=== PATIENT | female | born 1995 | race Caucasian/White ===

== ENCOUNTER 2020-06-07 02:38 | Inpatient (IN) | payer OTHER ==
--- NOTE | 2020-05-31 10:55 | PCM.LDHP ---
L&D History of Present Illness - General Date of Service: 06/07/20 Admit Problem/Dx: Admission Diagnosis/Problem Admission Diagnosis/Problem 05/31/20 10:45 Aisha is a 24-year-old 3 para 0-0-2-0 female who was scheduled to be admitted on 06/07/2020 for an elective primary section for juliano breech presentation at 39-3/7 weeks gestational age with an MADISON of 06/11/2020. Source of Information: Patient History Limitations: Reports: No Limitations - History of Present Illness Introduction:: Aisha is a 24-year-old 3 para 0-0-2-0 female who was scheduled to be admitted on 06/07/2020 for an elective primary section for juliano breech presentation at 39-3/7 weeks gestational age with an MADISON of 06/11/2020. Procedure, risks, benefits, alternatives of care including external cephalic version and vaginal breech delivery were discussed in detail with patient. She appears understand and wishes to proceed with a primary section. Consent is signed. Preoperative orders are placed. 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 Patient had menarche at age 14. Cycles q. 28 days. Positive hCG was on 10/05/2019. Her LMP was 09/05/2019. Her ultrasound is dated by the LMP and supported by at least 4 ultrasounds done since that time. GC is positive at the beginning of pregnancytreated.. No abnormal Pap smears noted. She is not using any control at the time of conception. course: First visit was at 10-3/7 weeks gestational age. She did have an ultrasound that was performed in [facility] at 6-5/7 weeks which correlated well with her LMP dating. She was seen on a regular basis. Her weight gain was from 210.2 pounds to 242 pounds for 32 pound weight gain. Her vital signs are stable throughout the course. Her fundal height growth was somewhat ahead of schedule on the last few visits. This felt possibly due to breech presentation. Her immunizations include Tdap given on 03/31/2020. She is rubella immune. Her group B strep screen is negative. Breech presentation was noted during the last trimester. She has suffers from anxiety. She plans on breast-feeding. Her prequel noninvasive screen was negative. She had a low-lying placenta early on which resolved with time. She plans on epidural in labor. Allergies: None Medications: 1. vitamins daily 2. Ferrous sulfate 325 mg daily. Past medical history: 1. Anxiety. 2. Miscarriage x2. Past surgical history: Unremarkable Family history: Mother is alive and has arthritis. Dad is alive and has adult- onset diabetes mellitus. 1 sister with asthma history. 1 brother alive and well. 1 paternal grandparent with cleft lip. Maternal grandmother secondary to heart issues in route resulting in valve replacements. Maternal grandfather with history of MIs in early age. Paternal grandmother secondary to adult-onset diabetes, Alzheimer's, at age 71. Paternal grandfather is alive but has the cleft palate. No anesthesia, bleeding, blood clotting problems noted in the family. Social history: Patient is . is Carlos. 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 She denies any significant muscle alcohol, drugs or tobacco. Review of systems: In general patient has no complaints. Baby has been active. Skin: Negative Lungs: No infectious symptoms or shortness of breath Cardiovascular: No chest pain or exercise intolerance Breasts: No lumps, changes in size, pain, dimpling, discharge or axillary or supraclavicular concerns. GI: Negative : Changes associated with . Musculoskeletal: Negative Neurological: Negative Physical exam: In general the patient is well-developed, well-nourished, pleasant female of stated age in no acute distress. Skin is warm dry without lesions. HEENT, neck and back within normal limits. Lungs are clear with good breath sounds in all lung orantes. Cardiovascular exam shows regular and rhythm without murmurs. Breast exam done at first visit was unremarkable. Is not repeated at this time. Abdomen is gravid with fundal height on last evaluation 05/31/2020 at 42 cm. Baby in a breech presentation by [place] maneu[place].. Genital per digital evaluation on 05/25/2020 showed cervix to be fingertip, 50% effaced, firm, very high. Presenting part not palpated Extremities and neurological exam are grossly within normal limits. H&P Review of Systems - Review of Systems: Review Of Systems: See Below L&D Exam - Exam Exam: See Below - Problem List (1) Juliano breech presentation SNOMED Code(s): 09540249 ICD Code: O32.1XX0 - MATERNAL CARE FOR BREECH PRESENTATION, UNSP Status: Acute (2) 39 weeks gestation of SNOMED Code(s): 68739483 ICD Code: Z3A.39 - 39 WEEKS GESTATION OF Status: Acute Problem List Initiated/Reviewed/Updated: Yes Assessment/Plan Comment:: 1. Aisha is a 24-year-old 3 para 0-0-2-0 female who was scheduled to be admitted on 06/07/2020 for an elective primary section for juliano breech presentation at 39-3/7 weeks gestational age with an MADISON of 06/11/2020. 2. History of GC in early 3. Patient plans to breast-feed 4. Tdap given during . 5. Rubella immune. 6. RPR nonreactive Plan: 1. Primary low uterine segment transverse section through Pfannenstiel skin incision under spinal block. Procedure, risk, benefits, alternatives of care discussed with patient. She appears understand and wishes to proceed. She has signed a consent. 2. DVT prophylaxis with SCDs 3. Infection prophylaxis with 2 g IV preop 4. Preoperative evaluation consist of RPR, type and screen, CBC, Covid19 testing 5. Water Fabricator Operator in attendance at the time of surgery 6. Support breast-feeding decision.
[~2020-06-07 02:38] MED LIST: Sodium Chloride 0.9% 10 ML Syringe FLUSH PRN; ceFAZolin 2 GM in Premix Bag 1 BAG IV ONE
[2020-06-07] MEDS ORDERED: Citric Acid/Sodium Citrate Solution 30 ML Cup PO ONE (06:00)
[2020-06-07] MEDS ORDERED: Metoclopramide 10 MG/2 ML SDV IVPUSH ONE (06:00)
[2020-06-07] MEDS ORDERED: Oxytocin/Lactated Ringers 20 UNIT/1,000 ML BAG IV SCH (06:00)
[2020-06-07] MEDS: Lactated Ringers 1,000 ML IV SCH ×2 (06:15→06:53)
[2020-06-07] MEDS ORDERED: Ondansetron 4 MG/2 ML SDV ONE (06:57)
[2020-06-07] MEDS ORDERED: Ketorolac 30 MG/ML SDV ONE (06:57)
[2020-06-07] MEDS ORDERED: Oxytocin 10 Units/1 ML SDV ONE (06:58)
[2020-06-07] MEDS ORDERED: Bupivacaine 0.5% 30 ML SDV ONE (07:04)
[2020-06-07] MEDS ORDERED: ceFAZolin 1 GM Vial ONE (07:04)
[2020-06-07] MEDS ORDERED: Lactated Ringers 0 ML ONE (07:05)
[2020-06-07] MEDS ORDERED: Morphine PF 10 MG/10 ML SDV ONE (07:08)
--- NOTE | 2020-06-07 07:27 | PCM.PREANE ---
Preanesthetic Assessment - Anesthesia/Transfusion/Family Hx Anesthesia History: Prior Anesthesia Without Reaction Family History of Anesthesia Reaction: No Transfusion History: No Prior Transfusion(s) Intubation History: Unknown - Review of Systems General: No Symptoms Pulmonary: No Symptoms Cardiovascular: No Symptoms Gastrointestinal: No Symptoms Neurological: No Symptoms Other: Reports: None - Physical Assessment NPO Status Date: 06/06/20 NPO Status Time: 22:30 Vital Signs: Last Vital Signs Temp 36.4 C 06/07/20 05:28 Pulse 83 06/07/20 05:28 Resp 18 06/07/20 05:28 BP 108/45 L 06/07/20 05:28 Pulse Ox 97 06/07/20 05:28 Height: 1.57 m Weight: 109.769 kg ASA Class: 2 Mental Status: Alert & Oriented x3 Airway Class: Mallampati = 3 Dentition: Reports: Normal Dentition Thyro-Mental Finger Breadths: 2 Mouth Opening Finger Breadths: 3 ROM/Head Extension: Full Lungs: Clear to Auscultation, Normal Respiratory Effort Cardiovascular: Regular Rate, Regular Rhythm - Lab Values: Laboratory Last Values WBC 8.74 K/mm3 (3.98-10.04) 06/07/20 05:15 RBC 4.13 M/mm3 (3.98-5.22) 06/07/20 05:15 Hgb 12.4 gm/dl (11.2-15.7) 06/07/20 05:15 Hct 36.9 % (34.1-44.9) 06/07/20 05:15 MCV 89.3 fl (79.4-94.8) 06/07/20 05:15 MCH 30.0 pg (25.6-32.2) 06/07/20 05:15 MCHC 33.6 g/dl (32.2-35.5) 06/07/20 05:15 RDW Std Deviation 45.4 fL (36.4-46.3) 06/07/20 05:15 Plt Count 149 K/mm3 (182-369) L 06/07/20 05:15 MPV 10.9 fl (9.4-12.3) 06/07/20 05:15 Neut % (Auto) 70.0 % (34.0-71.1) 06/07/20 05:15 Lymph % (Auto) 21.5 % (19.3-51.7) 06/07/20 05:15 Laurens % (Auto) 7.2 % (4.7-12.5) 06/07/20 05:15 Eos % (Auto) 1.0 (0.7-5.8) 06/07/20 05:15 Baso % (Auto) 0.1 % (0.1-1.2) 06/07/20 05:15 Neut # (Auto) 6.11 K/mm3 (1.56-6.13) 06/07/20 05:15 Lymph # (Auto) 1.88 K/mm3 (1.18-3.74) 06/07/20 05:15 Laurens # (Auto) 0.63 K/mm3 (0.24-0.36) H 06/07/20 05:15 Eos # (Auto) 0.09 K/mm3 (0.04-0.36) 06/07/20 05:15 Baso # (Auto) 0.01 K/mm3 (0.01-0.08) 06/07/20 05:15 Blood Type O POSITIVE 06/07/20 05:15 Gel Antibody Screen Negative 06/07/20 05:15 - Allergies Allergies/Adverse Reactions: Allergies Allergy/AdvReac Type Severity Reaction Status Date / Time No Known Allergies Allergy Verified 06/06/20 13:50 - Acknowledgements Anesthesia Type Planned: Spinal Pt an Appropriate Candidate for the Planned Anesthesia: Yes Alternatives and Risks of Anesthesia Discussed w Pt/Guardian: Yes Pt/Guardian Understands and Agrees with Anesthesia Plan: Yes PreAnesthesia Questionnaire HEENT History: Reports: None Cardiovascular History: Reports: None Respiratory History: Reports: None Gastrointestinal History: Reports: None Genitourinary History: Reports: None CHEF UNDER History: Reports: Polycystic Ovaries, , Other (See Below) Other OB/BYN History: current ovarian cyst in Musculoskeletal History: Reports: None Neurological History: Reports: None Psychiatric History: Reports: Anxiety, Depression Endocrine/Metabolic History: Reports: None Hematologic History: Reports: None - Past Surgical History Female Surgical History: Reports: D&C - SUBSTANCE USE Tobacco Use Status *Q: Former Tobacco User Tobacco Use Within Last Twelve Months: Cigarettes Recreational Drug Use History: No - HOME MEDS Home Medications: Home Meds Ferrous Sulfate [Iron] 325 mg PO DAILY 06/06/20 [History] Vits #93/Iron Fum/FA [ Formula Tablet] 1 ea PO DAILY 06/06/20 [History] - CURRENT (IN HOUSE) MEDS Current Meds: Current Medications Oxytocin/Lactated Ringer's (Pitocin In Lr 20 Units/1,000 Ml) 20 unit in 1,000 mls @ 500 mls/hr IV TITRATE KRISTY; Protocol Lactated Ringer's (Ringers, Lactated) 1,000 mls @ 125 mls/hr IV ASDIRECTED KRISTY Last Admin: 06/07/20 06:53 Dose: 125 mls/hr Documented by: Sodium Chloride (Sodium Chloride 0.9% 10 Ml Syringe) 10 ml FLUSH ASDIRECTED PRN PRN Reason: Keep Vein Open Discontinued Medications Bupivacaine HCl (Bupivacaine 0.5% 30 Ml Sdv) Confirm Administered Dose 30 ml .ROUTE .STK-MED ONE Stop: 06/07/20 07:05 Cefazolin Sodium (Cefazolin 1 Gm Vial) Confirm Administered Dose 2 gm .ROUTE .STK-MED ONE Stop: 06/07/20 07:05 Citric Acid/Sodium Citrate (Citric Acid/Sodium Citrate Solution 30 Ml Cup) 30 ml PO ONETIME ONE Stop: 06/07/20 06:01 Last Admin: 06/07/20 06:56 Dose: 30 ml Documented by: Cefazolin Sodium/Dextrose 2 gm (/ Premix) 50 mls @ 100 mls/hr IV ONETIME ONE Stop: 06/07/20 03:07 Lactated Ringer's (Ringers, Lactated) Confirm Administered Dose 1,000 mls @ as directed .ROUTE .STK-MED ONE Stop: 06/07/20 07:06 Ketorolac Tromethamine (Ketorolac 30 Mg/Ml Sdv) Confirm Administered Dose 30 mg .ROUTE .STK-MED ONE Stop: 06/07/20 06:58 Metoclopramide HCl (Metoclopramide 10 Mg/2 Ml Sdv) 10 mg IVPUSH ONETIME ONE Stop: 06/07/20 06:01 Last Admin: 06/07/20 06:57 Dose: 10 mg Documented by: Morphine Sulfate (Morphine Pf 10 Mg/10 Ml Sdv) Confirm Administered Dose 10 mg .ROUTE .STK-MED ONE Stop: 06/07/20 07:09 Ondansetron HCl (Ondansetron 4 Mg/2 Ml Sdv) Confirm Administered Dose 4 mg .ROUTE .STK-MED ONE Stop: 06/07/20 06:58 Oxytocin (Oxytocin 10 Units/1 Ml Sdv) Confirm Administered Dose 20 unit .ROUTE .STK-MED ONE Stop: 06/07/20 06:59
--- NOTE | 2020-06-07 08:12 | PCM.SN.2 ---
- Free Text/Narrative Note: History and physical update note: Aisha is a 24-year-old 3 para 0-0-2-0 female who was scheduled to be admitted on 06/07/2020 for an elective primary section for juliano breech presentation at 39-3/7 weeks gestational age with an MADISON of 06/11/2020. Upon evaluation preoperatively in labor and delivery a bedside ultrasound was performed and this showed the baby to be in a vertex presentation. A vaginal exam was performed shows cervix to be 1 cm dilated, 50% effaced, soft, -3 station, mid position. Cephalic presentation was confirmed. heart tones are reassuring. Discussion was held with patient and her Carlos regarding options including: Discharge from the hospital at this time and having the patient return when she is in spontaneous active labor, induction of labor at this point with cervix being what it is would recommend Cytotec times at least 3 doses followed by Pitocin. The process, induction, risk, benefits and alternatives are discussed in detail with the patient and her . They appear to understand and would like to proceed with induction at this time. Assessment: 1. 39-week 2. Cephalic presentation, previously breech on previous clinical evaluations. 3. History and physical otherwise as per previously dictated H&P. Plan: 1. We will proceed with induction of labor with Cytotec cervical ripening initially followed by Pitocin, possible balloon placement, possible AROM. 2. Patient desires epidural in labor and delivery for pain control. 3. Otherwise plan is same as previously dictated format with the exception of preparation and related orders.
[2020-06-07] MEDS ORDERED: Nalbuphine 10 MG/1 ML Vial IVPUSH PRN ×2 (08:24→08:35)
[2020-06-07] MEDS ORDERED: Oxytocin/Lactated Ringers 10 UNIT/1,000 ML BAG IV SCH ×2 (08:35→19:00)
[2020-06-07] MEDS ORDERED: Sodium Chloride 0.9% 10 ML Syringe FLUSH PRN (08:35)
[2020-06-07] MEDS ORDERED: Lidocaine 1% 50 ML MDV INJECT ONE (08:35)
[2020-06-07] MEDS ORDERED: Misoprostol 25 MCG (1/4 of 100 MCG) Tab VAG ONE (08:35)
[2020-06-07] MEDS: Misoprostol 25 MCG (1/4 of 100 MCG) Tab VAG SCH ×2 (12:41→15:44)
[2020-06-07] MEDS ORDERED: diphenhydrAMINE 50 MG/ML SDV IVPUSH PRN (16:10)
[2020-06-08] MEDS: fentaNYL 100 MCG/2 ML SDV EPIDUR PRN ×2 (00:30→15:43)
[2020-06-08] MEDS: Bupivacaine/fentaNYL/NS 100 ML Bag EPIDUR PRN ×3 (00:31→17:47)
[2020-06-08] MEDS: Lactated Ringers 1,000 ML IV SCH ×3 (01:29→15:38)
[2020-06-08] MEDS: ePHEDrine 50 MG/ML SDV IVPUSH PRN ×3 (02:41→04:04)
[2020-06-08] MEDS: Oxytocin/Lactated Ringers 20 UNIT/1,000 ML BAG IV SCH ×2 (05:30→17:47)
[2020-06-08] MEDS ORDERED: Ondansetron 4 MG/2 ML SDV IVPUSH PRN (19:47)
--- NOTE | 2020-06-08 21:13 | PCM.SN.2 ---
- Free Text/Narrative Note: Delivery note: Stage I: Aisha is a 24-year-old 1 now para 1-0-0-1 white female who was admitted on the a.m. of 06/07/2020 for elective primary section. She is noted to have had the baby turned and become cephalic since her last clinic visit. Decision was made to proceed with induction of labor because of potential variable lie. Patient underwent Cytotec induction x3 doses and then was started on Pitocin. She is on Pitocin for approximately 24 hours with slow advancement in the dose again. She made steady progress throughout this time. She underwent epidural for labor analgesia. Stage II: Aisha it became complete at approximately 2000 hrs. She pushed for approximately 33 minutes and at 2032 hrs. delivered a viable, colon, male named Dusty Jones in a direct occiput anterior position. There is a loose nuchal cord that was reduced over the baby's head. Baby shoulder delivered with gentle downward and then upward pressure. The baby was placed on mom's abdomen, nose and mouth were bulb suction. Pitocin was increased to 500 cc/h to facilitate increase in uterine tone and decrease likelihood of bleeding. Umbilical cord was allowed to pulsate for 3 minutes and then was clamped x2 and cut by the baby's father. There was a second-degree laceration. There was a lateral rent to this laceration towards the right side of the patient. scores were 8 and 9, weight was 3780 g (8 pounds 5.3 ounces) and the length was 21.5 inches. Stage III: The episiotomy was repaired in routine fashion using both 3-0 Monocryl and then 3-0 Vicryl because of #3-0 Monocryl being in the delivery room. This was done using the labor epidural analgesia for perineal laceration repair anesthesia. The placenta delivered in a Schultze fashion, appeared intact and complete and was discarded per patient desire. Estimated blood loss was 500 cc. Epidural catheter was removed from the patient's back after the repair. Patient plans to breast-feed. Condition: Good.
[2020-06-08] MEDS ORDERED: Benzocaine/Menthol 20%-0.5% Spray 56 GM Canister TOP PRN (21:17)
[2020-06-08] MEDS ORDERED: Witch Hazel Medicated Pads 40/Jar TOP PRN (21:17)
[2020-06-08] MEDS ORDERED: Acetaminophen 325 MG Tab PO PRN (21:17)
[2020-06-08] MEDS: Ibuprofen 600 MG Tab PO PRN (22:07)
--- NOTE | 2020-06-09 07:27 | PCM.SN.2 ---
- Free Text/Narrative Note: note: day #1. Patient is doing well in the period. Minimal lochia, voiding well, am bulated without problems. Nursing without concerns. Patient is afebrile, vital signs are stable Abdomen is flat, soft, uterus is below the umbilicus and is firm and nontender. Legs are nontender. Assessment: recovery going well. Plan: Routine care. Patient be discharged home within the next 24-48 hours.
--- NOTE | 2020-06-09 07:29 | PCM48HPAN ---
Post Anesthesia Note - EVALUATION WITHIN 48HRS OF ANESTHETIC Vital Signs in Normal Range: Yes Patient Participated in Evaluation: Yes Respiratory Function Stable: Yes Airway Patent: Yes Cardiovascular Function Stable: Yes Hydration Status Stable: Yes Pain Control Satisfactory: Yes Nausea and Vomiting Control Satisfactory: Yes Mental Status Recovered: Yes Vital Signs: Last Vital Signs Temp 36.4 C 06/09/20 04:37 Pulse 63 06/09/20 04:37 Resp 14 06/09/20 04:37 BP 120/73 06/09/20 04:37 Pulse Ox 99 06/09/20 04:37
[2020-06-09] MEDS: Ibuprofen 600 MG Tab PO PRN ×2 (07:48→19:44)
[2020-06-09] MEDS: Prenatal Multivitamin with Calcium/Folic Acid/Iron Tab PO SCH (09:55)
[2020-06-09] MEDS: Docusate Sodium 100 MG Cap PO PRN ×2 (12:11→21:19)
[2020-06-10] MEDS: Ibuprofen 600 MG Tab PO PRN (09:04)
[2020-06-10] MEDS: Prenatal Multivitamin with Calcium/Folic Acid/Iron Tab PO SCH (09:04)
--- NOTE | 2020-06-10 10:50 | PCM.DCSUM1 ---
Discharge Summary - Hospital Course Free Text/Narrative:: Stage I: Aisha is a 24-year-old 1 now para 1-0-0-1 white female who was admitted on the a.m. of 06/07/2020 for elective primary section. She is noted to have had the baby turned and become cephalic since her last clinic visit. Decision was made to proceed with induction of labor because of potential variable lie. Patient underwent Cytotec induction x3 doses and then was started on Pitocin. She is on Pitocin for approximately 24 hours with slow advancement in the dose again. She made steady progress throughout this time. She underwent epidural for labor analgesia. Stage II: Aisha it became complete at approximately 2000 hrs. She pushed for approximately 33 minutes and at 2032 hrs. delivered a viable, colon, male infant named Dusty Jones in a direct occiput anterior position. There is a loose nuchal cord that was reduced over the baby's head. Baby shoulder delivered with gentle downward and then upward pressure. The baby was placed on mom's abdomen, nose and mouth were bulb suction. Pitocin was increased to 500 cc/h to facilitate increase in uterine tone and decrease likelihood of bleeding. Umbilical cord was allowed to pulsate for 3 minutes and then was clamped x2 and cut by the baby's father. There was a second-degree laceration. There was a lateral rent to this laceration towards the right side of the patient. scores were 8 and 9, weight was 3780 g (8 pounds 5.3 ounces) and the length was 21.5 inches. Stage III: The episiotomy was repaired in routine fashion using both 3-0 Monocryl and then 3-0 Vicryl because of #3-0 Monocryl being in the delivery room. This was done using the labor epidural analgesia for perineal laceration repair anesthesia. The placenta delivered in a Schultze fashion, appeared intact and complete and was discarded per patient desire. Estimated blood loss was 500 cc. Epidural catheter was removed from the patient's back after the repair. Patient plans to breast-feed. The patient is breast-feeding which is going well. She has minimal lochia, voiding well and is ambulating without concerns. She is desiring discharge home. Condition: Good. - Discharge Data Discharge Date: 04/22/21 Discharge Disposition: Home, Self-Care 01 Condition: Good - Referral to Home Health Primary Care Physician: Mulugeta Quezada MD - Discharge Diagnosis/Problem(s) (1) Azam breech presentation SNOMED Code(s): 44072592 ICD Code: O32.1XX0 - MATERNAL CARE FOR BREECH PRESENTATION, UNSP Status: Acute Current Visit: No (2) 39 weeks gestation of SNOMED Code(s): 83265565 ICD Code: Z3A.39 - 39 WEEKS GESTATION OF Status: Acute Current Visit: No - Patient Instructions Diet: Regular Diet as Tolerated (Nursing diet with increased calories and calcium as recommended) Activity: As Tolerated (No intercourse or tampons until bleeding resolves) Driving: May Drive Today Showering/Bathing: May Shower (May take a bath) - Discharge Plan Home Medications: Home Meds Ferrous Sulfate [Iron] 325 mg PO DAILY 06/06/20 [History] Vits #93/Iron Fum/FA [ Formula Tablet] 1 ea PO DAILY 06/06/20 [History] Acetaminophen [Tylenol] 650 mg PO Q4H PRN tablet 06/10/20 [Rx] Docusate Sodium [Colace] 100 mg PO BID PRN cap 06/10/20 [Rx] Ibuprofen [Motrin] 600 mg PO Q4H PRN tablet 06/10/20 [Rx] Referrals: Mulugeta Quezada MD [Primary Care Provider] - (Return to [facility] weeks.) - Discharge Summary/Plan Comment DC Time >30 min.: No Discharge Summary/Plan Comment: Discharge instructions: 1. Discharge home 2. Diet, activity and follow-up discussed with patient. Recommend nursing diet with increased calories and calcium. 3. Precautions given concern increased pain, bleeding, temperature, signs/symptoms of DVT/PE. 4. Medications per home medication was printed, discussed with and given to the patient. 5. Return to clinic-Dr. Quezada[facility] in 2 weeks. Diagnosis: Term -delivered Condition: Good - Patient Data Vitals - Most Recent: Last Vital Signs Temp 36.3 C 06/10/20 08:55 Pulse 80 06/10/20 08:55 Resp 14 06/10/20 08:55 BP 126/77 06/10/20 08:55 Pulse Ox 97 06/10/20 08:55 Weight - Most Recent: 109.769 kg I&O - Last 24 hours: Intake & Output 06/09/20 06/10/20 06/10/20 22:59 06:59 14:59 Intake Total 0 Balance 0 Med Orders - Current: Current Medications Acetaminophen (Acetaminophen 325 Mg Tab) 650 mg PO Q4H PRN PRN Reason: mild pain or fever Last Admin: 06/09/20 12:09 Dose: 650 mg Documented by: Benzocaine/Menthol (Benzocaine/Menthol 20%-0.5% Coker 56 Gm Canister) 0 gm TOP ASDIRECTED PRN PRN Reason: Perineal Comfort Measure Last Admin: 06/08/20 22:06 Dose: 1 can Documented by: Docusate Sodium (Docusate Sodium 100 Mg Cap) 100 mg PO BID PRN PRN Reason: Constipation Last Admin: 06/09/20 21:19 Dose: 100 mg Documented by: Ibuprofen (Ibuprofen 600 Mg Tab) 600 mg PO Q4H PRN PRN Reason: Mild pain or fever Last Admin: 06/10/20 09:04 Dose: 600 mg Documented by: Prenat Multivit/Pet Ambassador/Iron/Folic Ac ( Multivitamin With Calcium/Folic Acid/Iron Tab) 1 each PO DAILY KRISTY Last Admin: 06/10/20 09:04 Dose: 1 each Documented by: Everton Anna (Everton Anna Medicated Pads 40/Jar) 1 pad TOP ASDIRECTED PRN PRN Reason: Perineal Comfort Measure Last Admin: 06/08/20 22:07 Dose: 1 tub Documented by: Discontinued Medications Bupivacaine HCl (Bupivacaine 0.5% 30 Ml Sdv) Confirm Administered Dose 0 ml .ROUTE .STK-MED ONE Stop: 06/07/20 07:05 Cefazolin Sodium (Cefazolin 1 Gm Vial) Confirm Administered Dose 2 gm .ROUTE .STK-MED ONE Stop: 06/07/20 07:05 Citric Acid/Sodium Citrate (Citric Acid/Sodium Citrate Solution 30 Ml Cup) 30 ml PO ONETIME ONE Stop: 06/07/20 06:01 Last Admin: 06/07/20 06:56 Dose: 30 ml Documented by: Diphenhydramine HCl (Diphenhydramine 50 Mg/Ml Sdv) 25 mg IVPUSH Q6H PRN PRN Reason: pruritis Ephedrine Sulfate (Ephedrine 50 Mg/Ml Sdv) 5 mg IVPUSH ASDIRECTED PRN PRN Reason: Hypotension Last Admin: 06/08/20 04:04 Dose: 5 mg Documented by: Fentanyl (Fentanyl 100 Mcg/2 Ml Sdv) 100 mcg EPIDUR Q3H PRN PRN Reason: Pain Last Admin: 06/08/20 15:43 Dose: 100 mcg Documented by: Fentanyl/Bupivacaine HCl (Bupivacaine/Fentanyl/Ns 100 Ml Bag) 100 ml EPIDUR ASDIRECTED PRN PRN Reason: Pain Last Admin: 06/08/20 17:47 Dose: 100 ml Documented by: Cefazolin Sodium/Dextrose 2 gm (/ Premix) 50 mls @ 100 mls/hr IV ONETIME ONE Stop: 06/07/20 03:07 Oxytocin/Lactated Ringer's (Pitocin In Lr 20 Units/1,000 Ml) 20 unit in 1,000 mls @ 500 mls/hr IV TITRATE KRISTY; Protocol Lactated Ringer's (Ringers, Lactated) 1,000 mls @ 125 mls/hr IV ASDIRECTED KRISTY Last Infusion: 06/07/20 16:54 Dose: 100 mls/hr Documented by: Lactated Ringer's (Ringers, Lactated) Confirm Administered Dose 0 mls @ as directed .ROUTE .K-MED ONE Stop: 06/07/20 07:06 Lactated Ringer's (Ringers, Lactated) 1,000 mls @ 100 mls/hr IV ASDIRECTED KRISTY Last Admin: 06/08/20 15:38 Dose: 100 mls/hr Documented by: Oxytocin/Lactated Ringer's (Pitocin In Lr 10 Units/1,000 Ml) 10 unit in 1,000 mls @ 500 mls/hr IV .CONTINUOUS KRSITY Oxytocin/Lactated Ringer's (Pitocin In Lr 10 Units/1,000 Ml) 10 unit in 1,000 mls @ 12 mls/hr IV TITRATE KRISTY; Protocol Last Titration: 06/08/20 04:50 Dose: 21 munits/min, 126 mls/hr Documented by: Oxytocin/Lactated Ringer's (Pitocin In Lr 20 Units/1,000 Ml) 20 unit in 1,000 mls @ 63 mls/hr IV TITRATE KRISTY; Protocol Last Admin: 06/08/20 17:47 Dose: 63 mls/hr Documented by: Ketorolac Tromethamine (Ketorolac 30 Mg/Ml Sdv) Confirm Administered Dose 30 mg .ROUTE .STK-MED ONE Stop: 06/07/20 06:58 Lidocaine HCl (Lidocaine 1% 50 Ml Mdv) 10 ml INJECT ONETIME ONE Stop: 06/07/20 08:36 Metoclopramide HCl (Metoclopramide 10 Mg/2 Ml Sdv) 10 mg IVPUSH ONETIME ONE Stop: 06/07/20 06:01 Last Admin: 06/07/20 06:57 Dose: 10 mg Documented by: Misoprostol (Misoprostol 25 Mcg (1/4 Of 100 Mcg) Tab) 25 mcg VAG ONETIME ONE Stop: 06/07/20 08:36 Last Admin: 06/07/20 08:59 Dose: 25 mcg Documented by: Misoprostol (Misoprostol 25 Mcg (1/4 Of 100 Mcg) Tab) 50 mcg VAG Q3H KRISTY Stop: 06/07/20 15:31 Last Admin: 06/07/20 15:44 Dose: 50 mcg Documented by: Morphine Sulfate (Morphine Pf 10 Mg/10 Ml Sdv) Confirm Administered Dose 0 mg .ROUTE .STK-MED ONE Stop: 06/07/20 07:09 Nalbuphine HCl (Nalbuphine 10 Mg/1 Ml Vial) 10 mg IVPUSH Q2H PRN PRN Reason: Pain Ondansetron HCl (Ondansetron 4 Mg/2 Ml Sdv) Confirm Administered Dose 4 mg .ROUTE .STK-MED ONE Stop: 06/07/20 06:58 Ondansetron HCl (Ondansetron 4 Mg/2 Ml Sdv) 4 mg IVPUSH Q8H PRN PRN Reason: Nausea Last Admin: 06/08/20 19:55 Dose: 4 mg Documented by: Oxytocin (Oxytocin 10 Units/1 Ml Sdv) Confirm Administered Dose 0 unit .ROUTE .STK-MED ONE Stop: 06/07/20 06:59 Sodium Chloride (Sodium Chloride 0.9% 10 Ml Syringe) 10 ml FLUSH ASDIRECTED PRN PRN Reason: Keep Vein Open Sodium Chloride (Sodium Chloride 0.9% 10 Ml Syringe) 10 ml FLUSH ASDIRECTED PRN PRN Reason: Keep Vein Open
== END 2020-06-10 11:45 | disposition home or self-care (01) | DRG 807 ==
LOC: INTOOBSV 04:58 → JD.OB 04:58 → OBSVTOIN 06-08 20:33 → JD.OB 06-08 20:34
PROVIDERS: ADMIT Obstetrics & Gynecology; ATTEND Obstetrics & Gynecology
PROC: 10E0XZZ Delivery of Products of Conception, External Approach (ICD-10-PCS; principal; 2020-06-08)
PROC: 10907ZC Drainage of Amniotic Fluid, Therapeutic from Products of Conception, Via Natural or Artificial Opening (ICD-10-PCS; 2020-06-08)
PROC: 3E033VJ Introduction of Other Hormone into Peripheral Vein, Percutaneous Approach (ICD-10-PCS; 2020-06-08)
PROC: 3E0P7VZ Introduction of Hormone into Female Reproductive, Via Natural or Artificial Opening (ICD-10-PCS; 2020-06-08)
PROC: 0W8NXZZ Division of Female Perineum, External Approach (ICD-10-PCS; 2020-06-08)
PROC: 3E0R3BZ Introduction of Anesthetic Agent into Spinal Canal, Percutaneous Approach (ICD-10-PCS; 2020-06-08)
PROC: 00HU33Z Insertion of Infusion Device into Spinal Canal, Percutaneous Approach (ICD-10-PCS; 2020-06-08)
DX: O32.1XX0 Maternal care for breech presentation, not applicable or unspecified (principal); Z37.0 Single live birth; Z3A.39 39 weeks gestation of pregnancy; O69.81X0 Labor and delivery complicated by cord around neck, without compression, not applicable or unspecified; Z87.891 Personal history of nicotine dependence
CPT/HCPCS: 01967; 36415; 51702; 59025; 59409; 85025; 86592; 86850; 86900; 86901; A9270-GY; J0690; J1885; J2270; J2405; J2590; J2765; J3010; J3490; J7120

== ENCOUNTER 2022-12-15 05:11 | Inpatient (IN) | payer OTHER ==
[~2022-12-15 05:11] MED LIST changes: +Lactated Ringers 1,000 ML IV SCH; -ceFAZolin 2 GM in Premix Bag 1 BAG IV ONE
[2022-12-15] MEDS ORDERED: ceFAZolin 1 GM in Sodium Chloride 0.9% 50 ML IV ONE (05:20)
[2022-12-15] MEDS ORDERED: Metoclopramide 10 MG/2 ML SDV IM ONE (05:21)
[2022-12-15] MEDS ORDERED: Citric Acid/Sodium Citrate Solution 30 ML Cup PO ONE ×2 (05:22→05:30)
[2022-12-15] MEDS ORDERED: Metoclopramide 10 MG/2 ML SDV IVPUSH ONE (05:30)
[2022-12-15] MEDS: Lactated Ringers 1,000 ML IV SCH ×2 (05:45→06:22)
[2022-12-15] MEDS ORDERED: ceFAZolin 2 GM in Sodium Chloride 0.9% 50 ML IV ONE (06:00)
[2022-12-15 06:26] LABS: BASOPHILS PERCENT AUTO 0.3 % (0.0-1.0); EOSINOPHILS ABSOLUTE AUTO 0.1 K/mm3 (0.0-0.4); EOSINOPHILS PERCENT AUTO 1.6 % (0.0-6.0); HEMATOCRIT 28.1 % (37.0-47.0); HEMOGLOBIN 8.7 gm/dl (12.0-16.0); IMMATURE GRAN ABSOLUTE AUTO 0.04 K/mm3 (0.00-0.05); IMMATURE GRAN PERCENT AUTO 0.5 % (0.0-0.4); LYMPHOCYTES ABSOLUTE AUTO 1.5 K/mm3 (1.0-4.8); LYMPHOCYTES PERCENT AUTO 19.9 % (24.0-44.0); MEAN CORPUSCULAR HEMOGLOBIN 24.6 pg (28.0-32.0); MEAN PLATELET VOLUME 10.6 fl (9.4-12.3); MONOCYTES ABSOLUTE AUTO 0.5 K/mm3 (0.0-0.8); NEUTROPHILS ABSOLUTE AUTO 5.5 K/mm3 (1.8-7.7); NEUTROPHILS PERCENT AUTO 70.7 % (41.0-71.0); PLATELET COUNT,PLT 142 K/mm3 (150-400); RED BLOOD CELL COUNT 3.54 M/mm3 (4.10-5.30); WHITE BLOOD CELL COUNT,WBC 7.73 K/mm3 (3.9-11.3)
[2022-12-15 06:37] LABS: MEAN CORPUSCULAR VOLUME 79.4 fl (83.0-99.0)
[2022-12-15] MEDS ORDERED: Oxytocin/Lactated Ringers 10 UNIT/1,000 ML BAG IV SCH ×2 (07:00→10:23)
[2022-12-15] MEDS ORDERED: Bupivacaine 0.5% 10 ML SDV ONE (07:30)
[2022-12-15] MEDS ORDERED: Oxytocin 10 Units/1 ML SDV ONE (08:30)
[2022-12-15] MEDS ORDERED: ceFAZolin 2 GM Vial ONE (08:50)
[2022-12-15] MEDS ORDERED: Phenylephrine 1% 10 MG/ML SDV ONE (08:50)
[2022-12-15] MEDS ORDERED: Ondansetron 4 MG/2 ML SDV ONE (08:50)
[2022-12-15] MEDS ORDERED: Sodium Chloride 0.9% 10 ML Syringe FLUSH SCH (09:00)
[2022-12-15] MEDS ORDERED: Magnesium Hydroxide 400 MG/5 ML Susp 30 ML Cup PO PRN (10:23)
[2022-12-15] MEDS ORDERED: Naloxone 0.4 MG/ML SDV IVPUSH PRN (10:23)
[2022-12-15] MEDS ORDERED: ePHEDrine 50 MG/ML SDV IVPUSH PRN (10:23)
[2022-12-15] MEDS ORDERED: Dextrose 5%-Lactated Ringers 1,000 ML IV SCH (10:23)
[2022-12-15] MEDS ORDERED: diphenhydrAMINE 50 MG/ML SDV IVPUSH PRN ×2 (10:23→11:04)
[2022-12-15] MEDS ORDERED: Meperidine 50 MG/ML Vial IVPUSH PRN (11:04)
[2022-12-15] MEDS ORDERED: Ondansetron 4 MG/2 ML SDV IVPUSH PRN (11:04)
[2022-12-15] MEDS ORDERED: fentaNYL 100 MCG/2 ML SDV IVPUSH PRN (11:04)
[2022-12-15] MEDS: Ketorolac 30 MG/ML SDV IVPUSH SCH ×3 (11:26→22:53)
[2022-12-15] MEDS: Acetaminophen/oxyCODONE 325-5 MG Tab PO PRN ×2 (12:56→20:28)
[2022-12-15] MEDS ORDERED: Ketorolac 30 MG/ML SDV IVPUSH SCH (15:00)
[2022-12-15 15:16] LABS: BASOPHILS PERCENT AUTO 0.2 % (0.0-1.0); EOSINOPHILS PERCENT AUTO 0.2 % (0.0-6.0); HEMATOCRIT 25.8 % (37.0-47.0); HEMOGLOBIN 7.9 gm/dl (12.0-16.0); IMMATURE GRAN ABSOLUTE AUTO 0.06 K/mm3 (0.00-0.05); IMMATURE GRAN PERCENT AUTO 0.5 % (0.0-0.4); LYMPHOCYTES ABSOLUTE AUTO 1.3 K/mm3 (1.0-4.8); LYMPHOCYTES PERCENT AUTO 10.7 % (24.0-44.0); MEAN CORPUSCULAR HEMOGLOBIN 24.7 pg (28.0-32.0); MEAN CORPUSCULAR HGB CONC 30.6 g/dl (32.0-36.0); MEAN CORPUSCULAR VOLUME 80.6 fl (83.0-99.0); MEAN PLATELET VOLUME 10.4 fl (9.4-12.3); MONOCYTES ABSOLUTE AUTO 0.7 K/mm3 (0.0-0.8); MONOCYTES PERCENT AUTO 5.8 % (0.0-8.0); NEUTROPHILS ABSOLUTE AUTO 10.1 K/mm3 (1.8-7.7); NEUTROPHILS PERCENT AUTO 82.6 % (41.0-71.0); PLATELET COUNT,PLT 137 K/mm3 (150-400); WHITE BLOOD CELL COUNT,WBC 12.15 K/mm3 (3.9-11.3)
[2022-12-15] MEDS: Docusate Sodium 100 MG Cap PO SCH (20:29)
[2022-12-16] MEDS: Ketorolac 30 MG/ML SDV IVPUSH SCH (04:45)
[2022-12-16] MEDS: Acetaminophen/oxyCODONE 325-5 MG Tab PO PRN ×3 (04:45→19:28)
[2022-12-16 05:50] LABS: BASOPHILS PERCENT AUTO 0.2 % (0.0-1.0); EOSINOPHILS ABSOLUTE AUTO 0.1 K/mm3 (0.0-0.4); HEMATOCRIT 22.5 % (37.0-47.0); IMMATURE GRAN ABSOLUTE AUTO 0.06 K/mm3 (0.00-0.05); IMMATURE GRAN PERCENT AUTO 0.7 % (0.0-0.4); LYMPHOCYTES ABSOLUTE AUTO 1.9 K/mm3 (1.0-4.8); LYMPHOCYTES PERCENT AUTO 22.9 % (24.0-44.0); MEAN CORPUSCULAR HEMOGLOBIN 24.7 pg (28.0-32.0); MEAN CORPUSCULAR HGB CONC 31.1 g/dl (32.0-36.0); MEAN CORPUSCULAR VOLUME 79.5 fl (83.0-99.0); MEAN PLATELET VOLUME 11.1 fl (9.4-12.3); MONOCYTES ABSOLUTE AUTO 0.5 K/mm3 (0.0-0.8); MONOCYTES PERCENT AUTO 6.7 % (0.0-8.0); NEUTROPHILS ABSOLUTE AUTO 5.5 K/mm3 (1.8-7.7); NEUTROPHILS PERCENT AUTO 68.5 % (41.0-71.0); PLATELET COUNT,PLT 129 K/mm3 (150-400); RED BLOOD CELL COUNT 2.83 M/mm3 (4.10-5.30); WHITE BLOOD CELL COUNT,WBC 8.07 K/mm3 (3.9-11.3)
[2022-12-16] MEDS ORDERED: Ibuprofen 600 MG Tab PO PRN (09:00)
[2022-12-16] MEDS: Prenatal Multivitamin with Calcium/Folic Acid/Iron Tab PO SCH (09:57)
[2022-12-16] MEDS: Docusate Sodium 100 MG Cap PO SCH (09:58)
[2022-12-16] MEDS: Ibuprofen 600 MG Tab PO PRN (18:10)
[2022-12-17] MEDS: Ibuprofen 600 MG Tab PO PRN ×3 (00:16→11:20)
[2022-12-17] MEDS: Docusate Sodium 100 MG Cap PO SCH ×2 (02:07→11:15)
[2022-12-17] MEDS: Acetaminophen/oxyCODONE 325-5 MG Tab PO PRN (03:09)
[2022-12-17 05:34] LABS: BASOPHILS PERCENT AUTO 0.6 % (0.0-1.0); EOSINOPHILS ABSOLUTE AUTO 0.2 K/mm3 (0.0-0.4); EOSINOPHILS PERCENT AUTO 3.1 % (0.0-6.0); HEMATOCRIT 22.5 % (37.0-47.0); IMMATURE GRAN ABSOLUTE AUTO 0.05 K/mm3 (0.00-0.05); IMMATURE GRAN PERCENT AUTO 0.7 % (0.0-0.4); LYMPHOCYTES ABSOLUTE AUTO 1.8 K/mm3 (1.0-4.8); LYMPHOCYTES PERCENT AUTO 24.8 % (24.0-44.0); MEAN CORPUSCULAR HEMOGLOBIN 24.6 pg (28.0-32.0); MEAN CORPUSCULAR HGB CONC 30.7 g/dl (32.0-36.0); MEAN CORPUSCULAR VOLUME 80.1 fl (83.0-99.0); MEAN PLATELET VOLUME 9.9 fl (9.4-12.3); MONOCYTES ABSOLUTE AUTO 0.5 K/mm3 (0.0-0.8); MONOCYTES PERCENT AUTO 6.7 % (0.0-8.0); NEUTROPHILS ABSOLUTE AUTO 4.6 K/mm3 (1.8-7.7); NEUTROPHILS PERCENT AUTO 64.1 % (41.0-71.0); PLATELET COUNT,PLT 116 K/mm3 (150-400); RED BLOOD CELL COUNT 2.81 M/mm3 (4.10-5.30); WHITE BLOOD CELL COUNT,WBC 7.17 K/mm3 (3.9-11.3)
[2022-12-17 05:55] LABS: HEMOGLOBIN 6.9 gm/dl (12.0-16.0)
[2022-12-17] MEDS ORDERED: Sodium Chloride 0.9% 1,000 ML IV SCH (06:15)
[2022-12-17] MEDS: Prenatal Multivitamin with Calcium/Folic Acid/Iron Tab PO SCH (11:15)
== END 2022-12-17 13:58 | disposition home or self-care (01) | DRG 787 ==
LOC: JD.OB 05:11
PROVIDERS: ADMIT Obstetrics & Gynecology; ATTEND Obstetrics & Gynecology
PROC: 30233N1 Transfusion of Nonautologous Red Blood Cells into Peripheral Vein, Percutaneous Approach (ICD-10-PCS; 2022-12-15)
PROC: 10D00Z1 Extraction of Products of Conception, Low, Open Approach (ICD-10-PCS; principal; 2022-12-15 08:00)
DX: O30.043 Twin pregnancy, dichorionic/diamniotic, third trimester (principal); D62 Acute posthemorrhagic anemia; O99.354 Diseases of the nervous system complicating childbirth; G43.909 Migraine, unspecified, not intractable, without status migrainosus; O90.81 Anemia of the puerperium; Z37.2 Twins, both liveborn; Z87.891 Personal history of nicotine dependence; Z3A.38 38 weeks gestation of pregnancy
CPT/HCPCS: 36415; 36430; 59025; 85025; 86592; 86850; 86900; 86901; 86922; 94762; A9270-GY; J0690; J1885; J2371; J2405; J2590; J2765; J3490; J7030; J7120; J7121; P9016